=== PATIENT | male | born 1985 | race Caucasian/White ===

== ENCOUNTER 2024-04-07 12:06 | Emergency (ER) | payer OTHER ==
[~2024-04-07] VITALS: Ht 175.3 cm; Wt 107.0 kg
[2024-04-07] MEDS ORDERED: GLUMETZA500 MG PO (12:59)
[2024-04-07] MEDS ORDERED: INSULIN REGULAR, HUMAN 1,000 UNIT/10 ML UNITS IV STA (14:16)
[2024-04-07 14:58] LABS: PH,URINE 5.5 (5.0-8.0); URINE APPEARANCE Clear; URINE BILIRRUBIN Negative (NEGATIVE); URINE BLOOD Negative; URINE COLOR Yellow; URINE LEUKOCYTE Negative; URINE NITRATE Negative; URINE PROTEIN Negative (NEGATIVE); URINE UROBILINOGEN 0.2 E.U./dl
[2024-04-07 15:00] LABS: URINE EPITHELIAL CELLS 48.9 uL (0.0-38.8); URINE RBC 5.3 uL (0.0-20.8); URINE WBC 164.9 uL (0.0-23.2)
[2024-04-07 15:05] LABS: ALBUMIN 3.7 gm/dL (3.4-5.0); BILIRUBIN TOTAL 0.59 mg/dL (0.3-1.2); CALCIUM 9.2 mg/dL (8.5-10.1); CREATININE SERUM 0.94 mg/dL (0.70-1.30); GFR 88.44; GLOBULINA 4.6 G/DL (2.4-3.5); POTASSIUM 3.96 mEq/L (3.5-5.1); TOTAL PROTEIN 8.3 gm/dL (6.4-8.2)
[2024-04-07 15:37] LABS: URINE GLUCOSE >=1000 MG/DL (NEGATIVE); URINE KETONE 80 (NEGATIVE)
== END 2024-04-07 15:55 | disposition home or self-care (01) ==
LOC: ER 12:06
DX: E11.9 Type 2 diabetes mellitus without complications (principal); Z79.84 Long term (current) use of oral hypoglycemic drugs; Z88.0 Allergy status to penicillin; Z88.6 Allergy status to analgesic agent